=== PATIENT | male | born 1990 | race Caucasian/White ===

== ENCOUNTER 2019-12-21 16:58 | Emergency (ER) | payer MEDICAID ==
[~2019-12-21] VITALS: Ht 185.4 cm; Wt 97.5 kg
[2019-12-21 17:00] VITALS: BP_SYST 149
[2019-12-21 17:40] VITALS: BP_SYST 149
[2019-12-21] MEDS ORDERED: IBUPROFEN 800 MG TABLET PO ONE (17:45)
== END 2019-12-21 17:40 ==
LOC: SED 16:58
DX: S60.212A Contusion of left wrist, initial encounter (principal); M25.532 Pain in left wrist; X58.XXXA Exposure to other specified factors, initial encounter; Y93.89 Activity, other specified; Y92.89 Other specified places as the place of occurrence of the external cause; Y99.8 Other external cause status
CPT/HCPCS: 99283